=== PATIENT | male | born 1950 | race Caucasian/White ===

== ENCOUNTER → 2018-11-02 | Outpatient (CLI) | payer BC ==
--- NOTE | 2018-11-02 09:24 | CT ---
EXAMINATION TYPE: CT lumbar spine wo con DATE OF EXAM: 11/02/2018 COMPARISON: None HISTORY: Spinal Stenosis CT DLP: 587.[address] of the lumbar spine was performed. Bone and soft tissue window settings are submitted as well as coronal and sagittal reconstructions. L1-L2: Normal disc space height. No disc herniation protrusion or central stenosis. No facet joint arthropathy. No evidence for foraminal encroachment. L2-L3: Mild degenerative disc space narrowing. Circumferential disc bulge greatest posteriorly. Mild effacement ventral thecal sac. No evidence for stenosis or herniation. Mild facet joint arthropathy. L3-L4: Moderate degenerative disc space narrowing. Moderate circumferential disc bulge greatest poste riorly. There is a bilateral lateral recess stenosis and mild central stenosis. Bilateral foraminal e ncroachment. L4-L5: Grade 1 anterolisthesis L4 and L5 of 5 mm. Left-sided hemilaminectomy change. No evidence for recurrent stenosis. There appears to be mild bilateral lateral recess stenosis and bilateral foramina l encroachment. Severe facet joint arthropathy noted. L5-S1: Moderate degenerative disc space narrowing. Mild circumferential disc bulge greatest posterior ly. Left sided hemilaminectomy change. No evidence recurrence stenosis. Mild right-sided foraminal en croachment. No paraspinal masses are identified. Lumbar segments are free if fracture. IMPRESSION: 1. Multilevel degenerative disc disease. 2. Central stenosis at L3-4 as discussed above. 3. Grade 1 anterolisthesis L4 and L5.
== END | disposition home or self-care (01) ==
LOC: RADCTMAIN 07:37
PROVIDERS: ATTEND Neurological Surgery
DX: M48.062 Spinal stenosis, lumbar region with neurogenic claudication (principal); M43.16 Spondylolisthesis, lumbar region; M51.36 Other intervertebral disc degeneration, lumbar region
CPT/HCPCS: 72131

== ENCOUNTER → 2019-06-15 | Outpatient (CLI) | payer BC ==
--- NOTE | 2019-06-15 17:57 | EST ---
EXERCISE STRESS AGE: 69 SEX: Male HT: 72. WEIGHT: 192 PROTOCOL: Ryan STAGE: 4 DURATION OF EXERCISE: 9:15 HEART RATE REST: 94 BLOOD PRESSURE REST: 133/93 MAXIMUM HEART RATE ACHIEVED: 152 MAXIMUM BLOOD PRESSURE: 200/92 85% MPHR: 128 100% MPHR: 151 METS: 10.7 INDICATIONS: Hypertension. CLINICAL INFORMATION: Patient referred for a stress test. Baseline heart rate 94 beats per minute. Baseline blood pressure 133/93 mmHg. Baseline 12-lead ECG shows normal sinus rhythm with normal cardiac intervals. Patient exercised on a Ryan protocol for 9 minutes 15 seconds, achieving a peak heart rate of 152 beats per minute. Mildly hypertensive response to exercise, 200/92 mmHg. Patient was short of breath at peak exercise. There was no ECG evidence for ischemia. No arrhythmias noted. IMPRESSION: 1. Excellent exercise capacity. 2. Hypertensive response to exercise. 3. Shortness of breath on exertion. 4. No ECG abnormalities noted. MMODL / IJN: [id number] /
== END | disposition home or self-care (01) ==
LOC: RADNMMAIN 10:55
DX: I10 Essential (primary) hypertension (principal)
CPT/HCPCS: 93017

== ENCOUNTER → 2020-03-28 | Outpatient (CLI) | payer MEDICARE ==
--- NOTE | 2020-03-28 22:52 | XR ---
EXAMINATION TYPE: XR chest 2V DATE OF EXAM: 03/28/2020 COMPARISON: NONE HISTORY: Difficulty breathing TECHNIQUE: 2 views FINDINGS: Heart and mediastinum are normal. Lungs are clear. Diaphragm is normal. Bony thorax appears normal. IMPRESSION: Normal chest.
== END | disposition home or self-care (01) ==
LOC: LABWHC1 16:24
PROVIDERS: ATTEND Neuromusculoskeletal Medicine & OMM
DX: R06.02 Shortness of breath (principal)
CPT/HCPCS: 71046

== ENCOUNTER → 2021-02-04 | Outpatient (CLI) | payer MEDICARE ==
--- NOTE | 2021-02-04 12:01 | FL ---
EXAMINATION TYPE: FL barium swallow DATE OF EXAM: 02/04/2021 CLINICAL INDICATION: 70 year-old male with R13.10, dysphagia, complains of difficulty completing a sw allow for the last 8 months. COMPARISON: None Total Fluoroscopy Time: 2 minutes 2 seconds 61 images obtained. FINDINGS: The swallowing mechanism is normal. There is moderate hypertrophy of the cricopharyngeus. A tiny left laterally projecting diverticulum is noted in the cervical esophagus which fills on swallowing but s hows intermediate, spontaneous emptying. Otherwise, the hypopharyngeal anatomy is preserved. The thoracic portion has a normal course and caliber and normal motility. The mucosa is normal and no persistent filling defect is encountered. A small hiatal hernia. Valsalva and positional maneuvers resulted in back filling of the small hiatal hernia but no letty gastroesophageal reflux could be elicited. IMPRESSION: 1. Moderate CP hypertrophy/spasm. This may be accounting for the patient's symptoms. 2. Small hiatal hernia. Valsalva results in backfilling into the hiatal hernia. However, no letty gas troesophageal reflux could be elicited on the present exam. 3. Incidental tiny diverticulum of the cervical esophagus projecting left laterally shows immediate, spontaneous emptying.
== END | disposition home or self-care (01) ==
LOC: RADUSWWP 10:00
PROVIDERS: ATTEND Otolaryngology
DX: K44.9 Diaphragmatic hernia without obstruction or gangrene (principal); J39.2 Other diseases of pharynx
CPT/HCPCS: 74220

== ENCOUNTER 2022-02-23 21:02 | Emergency (ER) | payer MEDICARE ==
[2022-02-23 21:49] VITALS: BP 145/82; PULSE 100; RESP 20; TEMP 98
--- NOTE | 2022-02-23 22:12 | XR ---
EXAMINATION TYPE: XR shoulder complete RT DATE OF EXAM: 02/23/2022 COMPARISON: NONE HISTORY: Shoulder TECHNIQUE: 3 views FINDINGS: There is no evidence of fracture or dislocation. Glenohumeral joint is intact. No pathologi c calcification. IMPRESSION: Negative right shoulder exam.
--- NOTE | 2022-02-23 22:58 | ED ---
Upper Extremity HPI - General Chief Complaint: Extremity Injury, Upper Stated Complaint: Fall,Shoulder injury Time Seen by Provider: 02/23/22 22:49 Source: patient, RN notes reviewed, old records reviewed Mode of arrival: ambulatory Limitations: no limitations - History of Present Illness Initial Comments: This is a 71-year-old male status post fall fall her right side. Right shoulder. Patient landed on his right shoulder having severe pain decreased range of motion pain with active range of motion pain with passive range of motion. Patient states the pain is just increasing his range of motion is diminishing since initial injury is also feeling some pain in his shoulder and neck. Did not his head no loss of consciousness no blood thinners MD Complaint: Injury to:: right, shoulder -: hour(s) Other Extremity Injury: Fingers: Right, Hand: Right, Wrist: Right, Elbow: Right, Arm: Right, Shoulder: Right, Forearm: Right Other Injuries: none Handedness: right Place: home Severity scale (1-10): 8 Improves With: none Worsens With: none Context: fall Associated Symptoms: denies other symptoms Treatments Prior to Arrival: other (0) - Related Data Allergies Allergy/AdvReac Type Severity Reaction Status Date / Time No Known Allergies Allergy Verified 02/23/22 21:47 Review of Systems ROS Statement: Those systems with pertinent positive or pertinent negative responses have been documented in the HPI. ROS Other: All systems not noted in ROS Statement are negative. Past Medical History Past Medical History: Atrial Fibrillation, Hypertension Past Surgical History: Orthopedic Surgery Additional Past Surgical History / Comment(s): rotator cuff urgery TURP. Past Psychological History: No Psychological Hx Reported Smoking Status: Never smoker Past Alcohol Use History: None Reported Past Drug Use History: None Reported General Exam Limitations: no limitations General appearance: alert, in no apparent distress Head exam: Present: atraumatic, normocephalic, normal inspection Eye exam: Present: normal appearance, PERRL, EOMI. Absent: scleral icterus, conjunctival injection, periorbital swelling ENT exam: Present: normal exam, mucous membranes moist Neck exam: Present: normal inspection. Absent: tenderness, meningismus, lymphadenopathy Respiratory exam: Present: normal lung sounds bilaterally. Absent: respiratory distress, wheezes, rales, rhonchi, stridor Cardiovascular Exam: Present: regular rate, normal rhythm, normal heart sounds. Absent: systolic murmur, diastolic murmur, rubs, gallop, clicks GI/Abdominal exam: Present: soft, normal bowel sounds. Absent: distended, tenderness, guarding, rebound, rigid Extremities exam: Present: normal inspection, tenderness, normal capillary refill, other (Tenderness with active and passive range of motion). Absent: full ROM, pedal edema, joint swelling, calf tenderness Back exam: Present: normal inspection Neurological exam: Present: alert, oriented X3, CN II-XII intact Psychiatric exam: Present: normal affect, normal mood Skin exam: Present: warm, dry, intact, normal color. Absent: rash Course Vital Signs 02/23/22 21:43 Temperature 98 F Pulse Rate 100 Respiratory 20 Rate Blood Pressure 145/82 O2 Sat by Pulse 96 Oximetry - Reevaluation(s) Reevaluation #1: 02/23/22 23:22 Medical records reviewed Reevaluation #2: 02/23/22 23:22 Patient informed of results and questions are answered Reevaluation #3: 02/23/22 23:22 Patient's pain is improved Medical Decision Making - Medical Decision Making 71 male to the emergency department for evaluation patient presents today for evaluation of shoulder pain left shoulder pain after fall. Decreased range of motion secondary to pain x-rays negative for acute disease a patient can be discharged home, given exercises anti-inflammatories and pain control encouraged to continue range of motion exercises with right shoulder - Radiology Data Radiology results: report reviewed (X-ray shoulder right negative for acute disease), image reviewed Disposition Clinical Impression: Strain of shoulder, Fall, Contusion of left shoulder Disposition: HOME SELF-CARE Condition: Good Instructions (If sedation given, give patient instructions): Shoulder Sprain (ED) Is patient prescribed a controlled substance at d/c from ED?: No Referrals: Aki Sosa DO [Primary Care Provider] - 1-2 days Time of Disposition: 23:30
[2022-02-23] MEDS ORDERED: ACET/COD 300 MG/30 MG STARTER PACK 6 TAB BTL PO STA (23:19)
[2022-02-23] MEDS ORDERED: IBUPROFEN 600 MG STARTER PACK 4 TAB BTL PO STA (23:19)
== END 2022-02-23 23:33 | disposition home or self-care (01) ==
LOC: EC 21:02
DX: S46.912A Strain of unspecified muscle, fascia and tendon at shoulder and upper arm level, left arm, initial encounter (principal); S40.012A Contusion of left shoulder, initial encounter; I48.91 Unspecified atrial fibrillation; I10 Essential (primary) hypertension; W19.XXXA Unspecified fall, initial encounter
CPT/HCPCS: 99284

== ENCOUNTER 2023-02-01 15:33 | Emergency (ER) | payer MEDICARE ==
--- NOTE | 2023-02-01 16:00 | ED ---
Fall HPI - General Chief Complaint: Fall Stated Complaint: fall- on thinners Time Seen by Provider: 02/01/23 15:47 Source: patient, RN notes reviewed, old records reviewed Mode of arrival: wheelchair Limitations: no limitations - History of Present Illness Initial Comments: This is a 72-year-old male to the emergency department for evaluation. Patient presents after fall ladder. Patient is in significant pain or discomfort unable to ambulate. On blood thinners for A. fib. Patient fall landing on his left hip left shoulder left arm left elbow but main complaints of left hip pain as well as concern for left knee pain. Patient was on a ladder when the ladder collapsed and he fell to the ground he believes is about 6 feet in the air. No loss of Consciousness and did not his head MD Complaint: fall -: hour(s) Fall From: from height (distance) (6 feet) When Fall Occurred: 1 hour BOND [employer]NER Fall Witnessed: yes, by family Loss of Consciousness: none Prolonged Down Time?: no Symptoms Prior to Fall: none Location: pelvis Location - Extremities: Left: Shoulder, Arm, Elbow, Thigh Severity scale (1-10): 10 Quality: sharp Context: tripped/slipped Associated Symptoms: denies - Related Data Home Medications Medication Instructions Recorded Confirmed Apixaban [Eliquis] 5 mg PO BID 02/01/23 02/01/23 Atorvastatin [Lipitor] 10 mg PO DAILY 02/01/23 02/01/23 Cyclobenzaprine [Flexeril] 10 mg PO HS 02/01/23 02/01/23 HYDROcodone/APAP 7.5-325MG [[place] 1 tab PO QID PRN 02/01/23 02/01/23 7.5-325] Ibuprofen [Motrin] 800 mg PO Q8H PRN 02/01/23 02/01/23 Montelukast [Singulair] 10 mg PO DAILY 02/01/23 02/01/23 Omeprazole 20 mg PO BID 02/01/23 02/01/23 Testosterone Cypionate 120 mg IM SA 02/01/23 02/01/23 [Depo-Testosterone] Zolpidem Tartrate [Ambien Cr] 12.5 mg PO HS 02/01/23 02/01/23 amLODIPine [Norvasc] 5 mg PO DAILY 02/01/23 02/01/23 dilTIAZem HCL [dilTIAZem HCL 24Hr 360 mg PO DAILY 02/01/23 02/01/23 ER (LA)] Allergies Allergy/AdvReac Type Severity Reaction Status Date / Time No Known Allergies Allergy Verified 02/01/23 16:42 Review of Systems ROS Statement: Those systems with pertinent positive or pertinent negative responses have been documented in the HPI. ROS Other: All systems not noted in ROS Statement are negative. Past Medical History Past Medical History: Atrial Fibrillation, Hypertension History of Any Multi-Drug Resistant Organisms: None Reported Past Surgical History: Orthopedic Surgery Additional Past Surgical History / Comment(s): rotator cuff urgery TURP. Past Psychological History: No Psychological Hx Reported Smoking Status: Never smoker Past Alcohol Use History: Occasional Past Drug Use History: None Reported General Exam General appearance: alert, in no apparent distress Head exam: Present: atraumatic, normocephalic, normal inspection Eye exam: Present: normal appearance, PERRL, EOMI. Absent: scleral icterus, conjunctival injection, periorbital swelling ENT exam: Present: normal exam, mucous membranes moist Neck exam: Present: normal inspection. Absent: tenderness, meningismus, lymphadenopathy Respiratory exam: Present: normal lung sounds bilaterally. Absent: respiratory distress, wheezes, rales, rhonchi, stridor Cardiovascular Exam: Present: regular rate, normal rhythm, normal heart sounds. Absent: systolic murmur, diastolic murmur, rubs, gallop, clicks GI/Abdominal exam: Present: soft, normal bowel sounds. Absent: distended, tenderness, guarding, rebound, rigid Extremities exam: Present: normal inspection, full ROM, normal capillary refill. Absent: tenderness, pedal edema, joint swelling, calf tenderness Back exam: Present: normal inspection Neurological exam: Present: alert, oriented X3, CN II-XII intact Psychiatric exam: Present: normal affect, normal mood Skin exam: Present: warm, dry, intact, normal color. Absent: rash Course Vital Signs 02/01/23 02/01/23 15:35 19:55 Temperature 98 F 98.4 F Pulse Rate 74 72 Respiratory 18 16 Rate Blood Pressure 139/79 128/86 O2 Sat by Pulse 97 98 Oximetry - Reevaluation(s) Reevaluation #1: 02/01/23 19:54 Medical record is reviewed Reevaluation #2: 02/01/23 19:54 Patient complains of pain throughout ER stay Reevaluation #3: 02/01/23 19:54 Patient informed results questions answered Reevaluation #4: 02/01/23 19:51 Was pt. sent in by a medical professional or institution (YOLANDA Myers, SALES SOLUTIONS REPRESENTATIVE, urgent care, hospital, or senior care...) When possible be specific @ -no Did you speak to anyone other than the patient for history (EMS, parent, family, police, friend...)? What history was obtained from this source @ -no Did you review nursing and triage notes (agree or disagree)? Why? @ -agree Are old charts reviewed (outside hosp., previous admission, EMS record, old EKG, old radiological studies, urgent care reports/EKG's, senior care records)? Report findings @ -yes Differential Diagnosis (chest pain, altered mental status, abdominal pain women, abdominal pain men, vaginal bleeding, weakness, fever, dyspnea, syncope, headache, dizziness, GI bleed, back pain, seizure, CVA, palpatations, mental health, musculoskeletal)? @ -prior EKG interpreted by me (3pts min.). @ -yes X-rays interpreted by me (1pt min.). @ -yes CT interpreted by me (1pt min.). @ -yes U/S interpreted by me (1pt. min.). @ -no What testing was considered but not performed or refused? (CT, X-rays, U/S, labs)? Why? @ -none What meds were considered but not given or refused? Why? @ -none Did you discuss the management of the patient with other professionals (professionals i.e. YOLANDA Myers, SALES SOLUTIONS REPRESENTATIVE, lab, RT, psych nurse, social service manager, gun stocker, teacher, recruitment officer, watch caser)? Give summary @ -no Was smoking cessation discussed for >3mins.? @ -no Was critical care preformed (if so, how long)? @ -no Were there social determinants of health that impacted care today? How? (Homelessness, low income, unemployed, alcoholism, drug addiction, transportation, low edu. Level, literacy, decrease access to med. care, custodial, rehab)? @ -none Was there de-escalation of care discussed even if they declined (Discuss DNR or withdrawal of care, Hospice)? DNR status @ -no What co-morbidities impacted this encounter? (DM, HTN, Smoking, COPD, CAD, Cancer, CVA, ARF, Chemo, Hep., AIDS, mental health diagnosis, sleep apnea, morbid obesity)? @ -none Was patient admitted / discharged? Hospital course, mention meds given and route, prescriptions, significant lab abnormalities, going to OR and other pertinent info. @ - 72 male to the emergency department for evaluation of fall from height on b lood thinners. Patient has difficulty left knee pain left hip pain found at tibial plateau fracture left knee patient will follow-up with orthopedics as an outpatient with knee immobilizer and nonweightbearing, patient will use crutches Discharged Undiagnosed new problem with uncertain prognosis? @ -no Drug Therapy requiring intensive monitoring for toxicity (Heparin, Nitro, Insulin, Cardizem)? @ -no Were any procedures done? @ -no Diagnosis/symptom? @ -Fall with left tibial plateau fracture Acute, or Chronic, or Acute on Chronic? @ -Acute Uncomplicated (without systemic symptoms) or Complicated (systemic symptoms)? @ -Complicated Side effects of treatment? @ -no Exacerbation, Progression, or Severe Exacerbation? @ -exacerbation Poses a threat to life or bodily function? How? (Chest pain, [place], [place], pneumonia, PE, COPD, DKA, ARF, appy, cholecystitis, CVA, Diverticulitis, Homicidal, Suicidal, threat to staff... and all critical care pts) @ -no Medical Decision Making - Medical Decision Making 72 male DF for evaluation of fall from height on blood thinners. Patient has difficulty left knee pain left hip pain found at tibial plateau fracture left knee patient will follow-up with orthopedics as an outpatient with knee im mobilizer and nonweightbearing, patient will use crutches - Lab Data Result diagrams: 02/01/23 16:08 02/01/23 16:08 Lab Results 02/01/23 02/01/23 02/01/23 Range/Units 16:08 16:08 16:08 WBC 5.5 (3.8-10.6) k/uL RBC 5.46 (4.30-5.90) m/uL Hgb 16.0 (13.0-17.5) gm/dL Hct 49.9 (39.0-53.0) % MCV 91.3 (80.0-100.0) fL MCH 29.2 (25.0-35.0) pg MCHC 32.0 (31.0-37.0) g/dL RDW 13.6 (11.5-15.5) % Plt Count 281 (150-450) k/uL MPV 7.1 Neutrophils % 59 % Lymphocytes % 29 % Monocytes % 7 % Eosinophils % 2 % Basophils % 0 % Neutrophils # 3.3 (1.3-7.7) k/uL Lymphocytes # 1.6 (1.0-4.8) k/uL Monocytes # 0.4 (0-1.0) k/uL Eosinophils # 0.1 (0-0.7) k/uL Basophils # 0.0 (0-0.2) k/uL Hypochromasia Slight PT 10.8 (10.0-12.5) sec INR 1.0 (<1.2) APTT 26.0 (22.0-30.0) sec Sodium 136 L (137-145) mmol/L Potassium 4.8 (3.5-5.1) mmol/L Chloride 103 (98-107) mmol/L Carbon Dioxide 23 (22-30) mmol/L Anion Gap 10 mmol/L BUN 19 (9-20) mg/dL Creatinine 0.87 (0.66-1.25) mg/dL Est GFR (CKD-EPI)AfAm >90 (>60 ml/min/1.73 sqM) Est GFR (CKD-EPI)NonAf 86 (>60 ml/min/1.73 sqM) Glucose 96 (74-99) mg/dL Calcium 9.9 (8.4-10.2) mg/dL Phosphorus 2.9 (2.5-4.5) mg/dL Magnesium 2.1 (1.6-2.3) mg/dL Total Bilirubin 0.6 (0.2-1.3) mg/dL AST 42 (17-59) U/L ALT 26 (4-49) U/L Alkaline Phosphatase 77 (38-126) U/L Total Protein 6.8 (6.3-8.2) g/dL Albumin 4.5 (3.5-5.0) g/dL - EKG Data -: EKG Interpreted by Me (EKG is sinus 79 IN 182 QRS 97 QTC 380) - Radiology Data Radiology results: report reviewed (Chest x-ray pelvis x-ray shoulder x-ray knee x-ray are negative for significant somatic injury CT left hip and left knee to show tibial plateau fracture left knee), image reviewed Disposition Clinical Impression: Fall, Fracture of left tibial plateau Disposition: HOME SELF-CARE Condition: Good Instructions (If sedation given, give patient instructions): Leg Fracture (ED) Is patient prescribed a controlled substance at d/c from ED?: No Referrals: Ezio Huff MD [Medical Doctor] - 1-2 days Time of Disposition: 19:55
[2023-02-01] MEDS ORDERED: SODIUM CHLORIDE 0.9% 1,000 ML IV ONE (16:03)
[2023-02-01] MEDS ORDERED: MORPHINE SULFATE 4 MG/ML SYRINGE IV STA (16:03)
--- NOTE | 2023-02-01 16:18 | XR ---
EXAMINATION TYPE: XR chest 1V DATE OF EXAM: 02/01/2023 COMPARISON: 03/28/2020 INDICATION: Fall, pain TECHNIQUE: Single frontal view of the chest is obtained. FINDINGS: The heart size is normal. The pulmonary vasculature is normal. The lungs are clear. No pneumothorax is evident. No displaced rib fractures are identified. Mediastinum appears unremarkab le IMPRESSION: 1. No acute pulmonary process.
--- NOTE | 2023-02-01 16:19 | XR ---
EXAMINATION TYPE: XR Hip LT and AP Pelvis DATE OF EXAM: 02/01/2023 COMPARISON: None HISTORY: Fall, pain TECHNIQUE: AP pelvis and two-view left hip FINDINGS: Femoral heads articulate with the acetabulum. No acute fractures or dislocations are eviden t. Pubic symphysis and sacroiliac joints are normal. Left femoral head articulates with the acetabulum. Joint space is preserved. No acute left hip fractu re is evident. IMPRESSION: 1. No acute osseous abnormality left hip
[2023-02-01 16:22] LABS: Basophils % (A) 0 %; Eosinophils # (A) 0.1 k/uL (0-0.7); Eosinophils % (A) 2 %; HCT 49.9 % (39.0-53.0); Hypochromasia Slight; Lymphocytes # (A) 1.6 k/uL (1.0-4.8); Lymphocytes % (A) 29 %; MCH 29.2 pg (25.0-35.0); MCV 91.3 fL (80.0-100.0); Mean Platelet Volume 7.1; Monocytes # (A) 0.4 k/uL (0-1.0); Monocytes % (A) 7 %; Neutrophils # (A) 3.3 k/uL (1.3-7.7); Neutrophils % (A) 59 %; Platelet Count 281 k/uL (150-450); RBC 5.46 m/uL (4.30-5.90); RDW 13.6 % (11.5-15.5); WBC 5.5 k/uL (3.8-10.6)
[2023-02-01 16:40] LABS: ALT 26 U/L (4-49); AST 42 U/L (17-59); African American GFR (CKD) >90 (>60 ml/min/1.73 sqM); Albumin 4.5 g/dL (3.5-5.0); Alkaline Phosphatase 77 U/L (38-126); Anion Gap 10 mmol/L; Blood Urea Nitrogen 19 mg/dL (9-20); Calcium 9.9 mg/dL (8.4-10.2); Carbon Dioxide 23 mmol/L (22-30); Chloride 103 mmol/L (98-107); Glucose 96 mg/dL (74-99); Magnesium 2.1 mg/dL (1.6-2.3); Non-African American GFR(CKD) 86 (>60 ml/min/1.73 sqM); Phosphorus 2.9 mg/dL (2.5-4.5); Potassium 4.8 mmol/L (3.5-5.1); Sodium 136 mmol/L (137-145); Total Bilirubin 0.6 mg/dL (0.2-1.3); Total Protein 6.8 g/dL (6.3-8.2)
[2023-02-01 16:53] LABS: Prothrombin Time 10.8 sec (10.0-12.5)
--- NOTE | 2023-02-01 17:01 | XR ---
EXAMINATION TYPE: XR knee complete LT DATE OF EXAM: 02/01/2023 COMPARISON: None HISTORY: 72-year-old male pain after fall from ladder TECHNIQUE: 3 views FINDINGS: Mild anterior soft tissue swelling. Extensor mechanism is intact. Maybe a trace knee joint effusion. Trace joint effusion. Possible subtle step off along the anterior lip of the lateral tibial plateau o n the AP view. No other acute fracture, subluxation, dislocation seen. IMPRESSION: Mild anterior soft tissue swelling and trace joint effusion. Subtle cortical irregularity along the a nterior lip of the lateral tibial plateau. If there is point tenderness, unable to exclude a subtle n ondisplaced tibial plateau fracture.
[2023-02-01] MEDS ORDERED: KETOROLAC 15 MG/ML 1 ML VIAL IVP STA (18:39)
[2023-02-01] MEDS ORDERED: HYDROmorphone 0.5 MG/0.5 ML SYRINGE IVP STA (18:39)
--- NOTE | 2023-02-01 18:43 | CT ---
EXAMINATION TYPE: CT hip LT wo con DATE OF EXAM: 02/01/2023 COMPARISON: Radiograph same date HISTORY: 72-year-old male left hip pain from fall TECHNIQUE: Contiguous axial scanning of the left hip without IV contrast. Coronal and sagittal recons tructions performed. Reconstructions generated on dedicated independent workstation. CT DLP: 498.9 mGycm Automated exposure control for dose reduction was used. FINDINGS: There appears to be mild subcutaneous soft tissue swelling along the lateral and posterolateral upper thigh. There is mild degenerative change of the left hip. No acute fracture, subluxation, dislocatio n is seen. Surgical material behind the deep left inguinal ring. Prostate gland enlarged at at least 5.6 cm wide. IMPRESSION: 1. MILD LEFT HIP OA. MILD SOFT TISSUE SWELLING LATERALLY PROBABLY RELATED TO THE PATIENT'S INJURY. NO ACUTE OSSEOUS ANTIBODY SEEN. 2. INCIDENTAL PROSTATOMEGALY. CORRELATE WITH PSA VALUES AND PATIENT'S SYMPTOMS.
--- NOTE | 2023-02-01 18:46 | CT ---
EXAMINATION TYPE: CT knee LT wo con DATE OF EXAM: 02/01/2023 COMPARISON: Radiograph same day HISTORY: 72-year-old male left knee pain following fall TECHNIQUE: Contiguous axial scanning of the left knee without IV contrast. Coronal and sagittal recon structions performed. 3-D reconstructions generated on a dedicated independent workstation. CT DLP: 129.5 mGycm Automated exposure control for dose reduction was used. FINDINGS: There is a fracture of the lateral tibial plateau oriented in the sagittal plane. Minimal less than 1 mm of articular surface depression peripherally involving the mid to posterior aspect. No lipohemarthrosis is seen. There is a small joint effusion. No additional acute fracture, subluxation, or dislocation seen. Extensor mechanism is intact. Mild anterior soft tissue swelling. IMPRESSION: NONDISPLACED LATERAL TIBIAL PLATEAU FRACTURE. THE FRACTURE LINE IS ORIENTED IN THE SAGITTAL PLANE AND THERE IS MINIMAL, LESS THAN 1 MM OF ARTICULAR SURFACE DEPRESSION.
--- NOTE | 2023-02-01 19:26 | XR ---
EXAMINATION TYPE: XR shoulder complete 3 views LT, XR elbow complete 3 views LT DATE OF EXAM: 02/01/2023 Comparison: None Clinical History: 72-year-old male with pain after fall Findings: Shoulder: Some soft tissue swelling overlying the shoulder. Mild degenerative change AC joint. Subacromial spac e is preserved. Some bony irregularity of the greater tuberosity. No acute fracture, subluxation, or dislocation. Left elbow: No joint effusion. No acute fracture, subluxation, dislocation. A peripheral line is present. Impression: 1. Left shoulder: Mild AC joint OA. Some bony changes suggesting chronic rotator cuff tendinopathy. M ild soft tissue swelling overlying the shoulder. No acute osseous abnormality seen. 2. Left elbow: No acute osseous abnormality seen.
[2023-02-01 20:34] VITALS: BP 128/86; PULSE 72; RESP 16; TEMP 98.4
== END 2023-02-01 19:55 | disposition home or self-care (01) ==
LOC: EC 15:33
DX: S82.142A Displaced bicondylar fracture of left tibia, initial encounter for closed fracture (principal); I48.91 Unspecified atrial fibrillation; I10 Essential (primary) hypertension; Z79.01 Long term (current) use of anticoagulants; Z79.899 Other long term (current) drug therapy; W11.XXXA Fall on and from ladder, initial encounter
CPT/HCPCS: 36415; 93005; 80053; 83735; 84100; 85025; 85610; 85730; 73030; 73502; 73080; 73562; 71045; 73700 ×2; 99285; 96374; 96375 ×2; 96361; L1830; J2270; J1885; J1170

== ENCOUNTER 2023-03-16 10:51 | Emergency (ER) | payer MEDICARE ==
--- NOTE | 2023-03-16 10:56 | ED ---
General Adult HPI - General Source: patient, RN notes reviewed Mode of arrival: ambulatory Limitations: no limitations <Rip Bean - Last Filed: 03/16/23 10:54> <Marito Erazo - Last Filed: 03/16/23 20:10> - General Stated complaint: gi bleed vomiting diarrhea Time Seen by Provider: 03/16/23 10:54 - History of Present Illness Initial comments: 73-year-old male presents emergency Department with chief complaint of nausea vomiting diarrhea. Patient states that started last night presents via EMS with brown emesis. Patient is on Xarelto. Patient went to 2 out of 10 abdominal pain. Denies any chest pain or shortness of breath. (Rip Bean) Dictation was produced using [employer] dictation software. please excuse any grammatical, word or spelling errors. Chief Complaint: 73-year-old male presents emergency department for coffee- ground emesis and melanotic stool History of Present Illness: Patient is 73-year-old male he has past medical history of A. fib and anticoagulation use presents emergency department for several hours of coffee-ground emesis and melanotic stool. Patient states that he also has lower abdominal pain. No fevers. Does feel lightheaded especially when he tries to stand up. Denies any history of GI bleed he has known history of GI polyps seen on endoscopy in the past. The ROS documented in this emergency department record has been reviewed and co nfirmed by me. Those systems with pertinent positive or negative responses have been documented in the HPI. All other systems are other negative and/or noncontributory. (Marito Erazo) - Related Data Home Medications Medication Instructions Recorded Confirmed Apixaban [Eliquis] 5 mg PO BID 02/01/23 03/16/23 Atorvastatin [Lipitor] 10 mg PO HS 02/01/23 03/16/23 Cyclobenzaprine [Flexeril] 10 mg PO HS 02/01/23 03/16/23 HYDROcodone/APAP 7.5-325MG [Alexander 1 tab PO QID 02/01/23 03/16/23 7.5-325] Ibuprofen [Motrin] 800 mg PO TID 02/01/23 03/16/23 Montelukast [Singulair] 10 mg PO HS 02/01/23 03/16/23 Omeprazole 20 mg PO AC-BID 02/01/23 03/16/23 Testosterone Cypionate 120 mg IM SA 02/01/23 03/16/23 [Depo-Testosterone] Zolpidem Tartrate [Ambien Cr] 12.5 mg PO HS 02/01/23 03/16/23 amLODIPine [Norvasc] 5 mg PO HS 02/01/23 03/16/23 dilTIAZem HCL [dilTIAZem HCL 24Hr 360 mg PO DAILY 02/01/23 03/16/23 ER ([place])] Famotidine [Pepcid] 40 mg PO HS 03/16/23 03/16/23 Allergies Allergy/AdvReac Type Severity Reaction Status Date / Time No Known Allergies Allergy Verified 03/16/23 17:07 Review of Systems ROS Other: All systems not noted in ROS Statement are negative. <Rip Bean - Last Filed: 03/16/23 10:54> ROS Other: All systems not noted in ROS Statement are negative. <Marito Erazo - Last Filed: 03/16/23 20:10> ROS Statement: Those systems with pertinent positive or pertinent negative responses have been documented in the HPI. Past Medical History Past Medical History: Atrial Fibrillation, Hypertension History of Any Multi-Drug Resistant Organisms: None Reported Past Surgical History: Orthopedic Surgery Additional Past Surgical History / Comment(s): rotator cuff urgery TURP. Past Psychological History: No Psychological Hx Reported Smoking Status: Never smoker Past Alcohol Use History: Occasional Past Drug Use History: None Reported <Rip Bean - Last Filed: 03/16/23 10:54> General Exam <Rip Bean - Last Filed: 03/16/23 10:54> <Marito Erazo - Last Filed: 03/16/23 20:10> - General Exam Comments Initial Comments: Visual Physical Exam Vital signs reviewed General: Well-appearing, nontoxic, no acute distress. Head: Normocephalic, atraumatic Eyes: PERRLA, EOMI ENT: Airway patent Chest: Nonlabored breathing Skin: No visual rash, normal skin tone Neuro: Alert and oriented 3 Musculoskeletal: No gross abnormalities (Rip Bean) PHYSICAL EXAM: General Impression: Alert and oriented x3, not in acute distress HEENT: Normocephalic atraumatic, extra-ocular movements intact, pupils equal and reactive to light bilaterally, mucous membranes moist. Cardiovascular: Heart regular rate and rhythm Chest: Able to complete full sentences, no retractions, no tachypnea Abdomen: abdomen soft, mild lower abdominal palpatory tenderness, non-distended, no organomegaly Musculoskeletal: Pulses present and equal in all extremities, no peripheral edema Motor: no focal deficits noted Neurological: CN II-XII grossly intact, no focal motor or sensory deficits noted Skin: Intact with no visualized rashes Psych: Normal affect and mood Rectal: No gross blood (Marito Erazo) Course Vital Signs 03/16/23 03/16/23 03/16/23 11:07 17:04 18:53 Temperature 98.2 F Pulse Rate 98 86 91 Respiratory 18 18 18 Rate Blood Pressure 127/79 119/76 114/81 O2 Sat by Pulse 95 92 L 96 Oximetry Medical Decision Making <Rip Bean - Last Filed: 03/16/23 10:54> - Lab Data Result diagrams: 03/16/23 11:11 03/16/23 11:11 <Marito Erazo - Last Filed: 03/16/23 20:10> - Medical Decision Making I completed the quick note portion of this chart signed Rip Bean PA-C (Rip Bean) Was pt. sent in by a medical professional or institution ([facility], [employer], urgent care, hospital, or penitentiary...) When possible be specific @ -No Did you speak to anyone other than the patient for history (EMS, parent, family, police, friend...)? What history was obtained from this source @ - at the bedside Did you review nursing and triage notes (agree or disagree)? Why? @ -I reviewed and agree with nursing and triage notes Were old charts reviewed (outside hosp., previous admission, EMS record, old EKG , old radiological studies, urgent care reports/EKG's, penitentiary records)? Report findings @ -No old charts were reviewed Differential Diagnosis (chest pain, altered mental status, abdominal pain women, abdominal pain men, vaginal bleeding, musculoskeletal, weakness, fever, dyspnea, syncope, headache, dizziness, GI bleed, back pain, seizure, CVA, palpatations, mental health)? @ -Differential Abdominal Pain Men: Appendicitis, cholecystitis, diverticulosis, ischemic bowel, pancreatitis, hepatitis, UTI, gastroenteritis, AAA, incarcerated hernia, bowel obstruction, constipation, inflammatory bowel, hepatitis, peptic ulcer disease, splenic infarction, perforated viscus, testicular torsion, this is not meant to be an all-inclusive list X-rays interpreted by me (1pt min.). @ -None done CT interpreted by me (1pt min.). @ -CT of the abdomen and pelvis shows hazy area of mesentery and wall thickening concerning for small bowel ischemia U/S interpreted by me (1pt. min.). @ -None done What testing was considered but not performed or refused? (CT, X-rays, U/S, labs)? Why? @ -None What meds were considered but not given or refused? Why? @ -None Did you discuss the management of the patient with other professionals (john atwood i.e. , PA, [employer]ER, lab, RT, psych nurse, social service coordinator, puff iron operator, teacher, loan servicing officer, casework manager)? Give summary @ -Discussed with Dr. Arzate who requested patient be transferred given patient's clinical presentation and CT findings. Case discussed with Dr. Bateman at [facility] who is willing to accept patient's care Was smoking cessation discussed for >3mins.? @ -No Was critical care preformed (if so, how long)? @ -No Were there social determinants of health that impacted care today? How? (Homelessness, low income, unemployed, alcoholism, drug addiction, transportation, low edu. Level, literacy, decrease access to med. care, prison, rehab)? @ -No Was there de-escalation of care discussed even if they declined (Discuss DNR or withdrawal of care, Hospice)? DNR status @ -No What co-morbidities impacted this encounter? (DM, HTN, Smoking, COPD, CAD, Cancer, CVA, ARF, Chemo, Hep., AIDS, mental health diagnosis, sleep apnea, morbid obesity)? @ -None Was patient admitted / discharged? Hospital course, mention meds given and route, prescriptions, significant lab abnormalities, going to OR and other pertinent info. @ -73-year-old male presents with abdominal pain and concerns of coffee-ground emesis and melanotic diarrhea. Vital signs stable. Patient will. The bedside he does have abdominal pain with palpation. Vital signs are stable. Laboratory evaluation shows leukocytosis 16.8. Restless within acceptable limits. So, blood is negative. Computed tomography scan reports suspicious for ischemic bowel. Case discussed with Dr. Abdul who requested transfer. Patient requests transfer and therefore. Vik Emanuel except. Patient given IV Zosyn. Undiagnosed new problem with uncertain prognosis? @ -No Drug Therapy requiring intensive monitoring for toxicity (Heparin, Nitro, Insulin, Cardizem)? @ -No Were any procedures done? @ -No Diagnosis/symptom? Acute, or Chronic, or Acute on Chronic? Uncomplicated (without systemic symptoms) or Complicated (systemic symptoms)? @ -Abdominal pain, concern for ischemic bowel Side effects of treatment? @ -No Exacerbation, Progression, or Severe Exacerbation? @ -No Poses a threat to life or bodily function? How? (Chest pain, USA, CT, pneumonia, PE, COPD, DKA, ARF, appy, cholecystitis, CVA, Diverticulitis, Homicidal, Suicidal, threat to staff... and all critical care pts) @ -yes (Marito Erazo) - Lab Data Lab Results 03/16/23 03/16/23 03/16/23 Range/Units 11:11 11:11 11:11 WBC 16.8 H (3.8-10.6) k/uL RBC 6.04 H (4.30-5.90) m/uL Hgb 16.8 (13.0-17.5) gm/dL Hct 53.7 H (39.0-53.0) % MCV 88.9 (80.0-100.0) fL MCH 27.9 (25.0-35.0) pg MCHC 31.4 (31.0-37.0) g/dL RDW 14.3 (11.5-15.5) % Plt Count 311 (150-450) k/uL MPV 6.9 Neutrophils % 92 % Lymphocytes % 3 % Monocytes % 3 % Eosinophils % 1 % Basophils % 0 % Neutrophils # 15.5 H (1.3-7.7) k/uL Lymphocytes # 0.5 L (1.0-4.8) k/uL Monocytes # 0.6 (0-1.0) k/uL Eosinophils # 0.2 (0-0.7) k/uL Basophils # 0.0 (0-0.2) k/uL Hypochromasia Slight PT (10.0-12.5) sec INR (<1.2) APTT (22.0-30.0) sec Sodium 141 (137-145) mmol/L Potassium 4.1 (3.5-5.1) mmol/L Chloride 101 (98-107) mmol/L Carbon Dioxide 31 H (22-30) mmol/L Anion Gap 9 mmol/L BUN 17 (9-20) mg/dL Creatinine 0.94 (0.66-1.25) mg/dL Est GFR (CKD-EPI)AfAm >90 (>60 ml/min/1.73 sqM) Est GFR (CKD-EPI)NonAf 81 (>60 ml/min/1.73 sqM) Glucose 141 H (74-99) mg/dL Plasma Lactic Acid Jose Roberto 1.3 (0.7-2.0) mmol/L Calcium 10.3 H (8.4-10.2) mg/dL Total Bilirubin 0.6 (0.2-1.3) mg/dL AST 27 (17-59) U/L ALT 21 (4-49) U/L Alkaline Phosphatase 70 (38-126) U/L Total Protein 6.8 (6.3-8.2) g/dL Albumin 4.4 (3.5-5.0) g/dL Amylase 52 (30-110) U/L Lipase 44 (23-300) U/L Stool Occult Blood (Negative) Blood Type Blood Type Confirm Blood Type Recheck Bld Type Recheck Status Antibody Screen Spec Expiration Date 03/16/23 03/16/23 03/16/23 Range/Units 11:11 11:11 16:47 WBC (3.8-10.6) k/uL RBC (4.30-5.90) m/uL Hgb (13.0-17.5) gm/dL Hct (39.0-53.0) % MCV (80.0-100.0) fL MCH (25.0-35.0) pg MCHC (31.0-37.0) g/dL RDW (11.5-15.5) % Plt Count (150-450) k/uL MPV Neutrophils % % Lymphocytes % % Monocytes % % Eosinophils % % Basophils % % Neutrophils # (1.3-7.7) k/uL Lymphocytes # (1.0-4.8) k/uL Monocytes # (0-1.0) k/uL Eosinophils # (0-0.7) k/uL Basophils # (0-0.2) k/uL Hypochromasia PT 11.4 (10.0-12.5) sec INR 1.0 (<1.2) APTT 23.6 (22.0-30.0) sec Sodium (137-145) mmol/L Potassium (3.5-5.1) mmol/L Chloride (98-107) mmol/L Carbon Dioxide (22-30) mmol/L Anion Gap mmol/L BUN (9-20) mg/dL Creatinine (0.66-1.25) mg/dL Est GFR (CKD-EPI)AfAm (>60 ml/min/1.73 sqM) Est GFR (CKD-EPI)NonAf (>60 ml/min/1.73 sqM) Glucose (74-99) mg/dL Plasma Lactic Acid Jose Roberto (0.7-2.0) mmol/L Calcium (8.4-10.2) mg/dL Total Bilirubin (0.2-1.3) mg/dL AST (17-59) U/L ALT (4-49) U/L Alkaline Phosphatase (38-126) U/L Total Protein (6.3-8.2) g/dL Albumin (3.5-5.0) g/dL Amylase (30-110) U/L Lipase (23-300) U/L Stool Occult Blood (Negative) Blood Type A Positive Blood Type Confirm A Positive Blood Type Recheck No Previous Record Bld Type Recheck Status CABO Indicated Antibody Screen NEGATIVE Spec Expiration Date 03/19/2023 - 231003/16/23 Range/Units 16:47 WBC (3.8-10.6) k/uL RBC (4.30-5.90) m/uL Hgb (13.0-17.5) gm/dL Hct (39.0-53.0) % MCV (80.0-100.0) fL MCH (25.0-35.0) pg MCHC (31.0-37.0) g/dL RDW (11.5-15.5) % Plt Count (150-450) k/uL MPV Neutrophils % % Lymphocytes % % Monocytes % % Eosinophils % % Basophils % % Neutrophils # (1.3-7.7) k/uL Lymphocytes # (1.0-4.8) k/uL Monocytes # (0-1.0) k/uL Eosinophils # (0-0.7) k/uL Basophils # (0-0.2) k/uL Hypochromasia PT (10.0-12.5) sec INR (<1.2) APTT (22.0-30.0) sec Sodium (137-145) mmol/L Potassium (3.5-5.1) mmol/L Chloride (98-107) mmol/L Carbon Dioxide (22-30) mmol/L Anion Gap mmol/L BUN (9-20) mg/dL Creatinine (0.66-1.25) mg/dL Est GFR (CKD-EPI)AfAm (>60 ml/min/1.73 sqM) Est GFR (CKD-EPI)NonAf (>60 ml/min/1.73 sqM) Glucose (74-99) mg/dL Plasma Lactic Acid Jose Roberto (0.7-2.0) mmol/L Calcium (8.4-10.2) mg/dL Total Bilirubin (0.2-1.3) mg/dL AST (17-59) U/L ALT (4-49) U/L Alkaline Phosphatase (38-126) U/L Total Protein (6.3-8.2) g/dL Albumin (3.5-5.0) g/dL Amylase (30-110) U/L Lipase (23-300) U/L Stool Occult Blood Negative (Negative) Blood Type Blood Type Confirm Blood Type Recheck Bld Type Recheck Status Antibody Screen Spec Expiration Date Disposition <Rip Bean - Last Filed: 03/16/23 10:54> Time of Disposition: 20:10 - Out of Hospital Transfer - Req. Specs Out of Hospital Transfer - Requested Specifics: Other Emergency Center ([facility]) <Marito Erazo - Last Filed: 03/16/23 20:10> Clinical Impression: Ischemic bowel disease Disposition: OTHER INSTITUTION NOT DEFINED Condition: Serious Referrals: Arnulfo Sosa DO [REFERRING] - 1-2 days
[2023-03-16 11:33] VITALS: RESP 18; TEMP 98.2
[2023-03-16 11:59] LABS: Basophils % (A) 0 %; Eosinophils # (A) 0.2 k/uL (0-0.7); Eosinophils % (A) 1 %; HCT 53.7 % (39.0-53.0); HGB 16.8 gm/dL (13.0-17.5); Hypochromasia Slight; Lymphocytes # (A) 0.5 k/uL (1.0-4.8); Lymphocytes % (A) 3 %; MCH 27.9 pg (25.0-35.0); MCHC 31.4 g/dL (31.0-37.0); MCV 88.9 fL (80.0-100.0); Mean Platelet Volume 6.9; Monocytes # (A) 0.6 k/uL (0-1.0); Monocytes % (A) 3 %; Neutrophils # (A) 15.5 k/uL (1.3-7.7); Neutrophils % (A) 92 %; Platelet Count 311 k/uL (150-450); RBC 6.04 m/uL (4.30-5.90); RDW 14.3 % (11.5-15.5); WBC 16.8 k/uL (3.8-10.6)
[2023-03-16 12:14] LABS: ALT 21 U/L (4-49); AST 27 U/L (17-59); African American GFR (CKD) >90 (>60 ml/min/1.73 sqM); Albumin 4.4 g/dL (3.5-5.0); Alkaline Phosphatase 70 U/L (38-126); Amylase 52 U/L (30-110); Anion Gap 9 mmol/L; Blood Urea Nitrogen 17 mg/dL (9-20); Calcium 10.3 mg/dL (8.4-10.2); Carbon Dioxide 31 mmol/L (22-30); Chloride 101 mmol/L (98-107); Glucose 141 mg/dL (74-99); Lipase 44 U/L (23-300); Non-African American GFR(CKD) 81 (>60 ml/min/1.73 sqM); Potassium 4.1 mmol/L (3.5-5.1); Sodium 141 mmol/L (137-145); Total Bilirubin 0.6 mg/dL (0.2-1.3); Total Protein 6.8 g/dL (6.3-8.2)
[2023-03-16 12:16] LABS: Partial Thromboplastin Time 23.6 sec (22.0-30.0); Prothrombin Time 11.4 sec (10.0-12.5)
[2023-03-16] MEDS ORDERED: PANTOPRAZOLE 40 MG/10 ML VIAL IVP STA (15:28)
--- NOTE | 2023-03-16 18:33 | CT ---
EXAMINATION TYPE: CT abdomen pelvis w con DATE OF EXAM: 03/16/2023 COMPARISON: None HISTORY: black vomit and diarrhea CT DLP: 883.3 mGycm CONTRAST: CT scan of the abdomen and pelvis is performed without Oral Contrast and with IV Contrast, patient in jected with 100ml mL of Isovue 300. FINDINGS: LUNG BASES-: No visible nodule. No infiltrate. LIVER/GB: No calcified gallstones. No space occupying hepatic lesion. Biliary tree is of normal ca liber. PANCREAS: No inflammation. No distinct mass. SPLEEN: No splenic enlargement. No lesion seen. ADRENALS: No nodule. No thickening. KIDNEYS/BLADDER: No hydronephrosis. 4 mm nonobstructing calculus kidney. Simple cyst upper pole left kidney. No distinct renal mass. Urinary bladder grossly unremarkable. BOWEL: There are dilated loops of bowel within the upper abdomen measuring up to 3.5 cm with wall thi ckening and hazy mesentery. Small bowel ischemia is not excluded and strict clinical correlation with lactic acid is recommended as well as with clinical findings. Inflammatory or infectious enteritis i s considered less likely. There is no evidence for perforation or free air. Large bowel is of normal caliber as is the distal small bowel. Normal appendix visualized. GENITAL ORGANS: Prostate gland enlargement noted. LYMPH NODES: No greater than 1cm abdominal or pelvic lymph nodes are appreciated. AORTA: No significant abnormality. OSSEOUS STRUCTURES: No significant abnormality is seen. OTHER: No significant additional abnormality is seen. IMPRESSION: 1. There are dilated loops of small bowel within the upper abdomen measuring up to 3.5 cm with wall t hickening and hazy mesentery. Small bowel ischemia is not excluded and strict clinical correlation wi th lactic acid is recommended as well as with clinical findings. Inflammatory or infectious enteritis is considered less likely.
[2023-03-16] MEDS ORDERED: MORPHINE SULFATE 4 MG/ML SYRINGE IVP PRN (18:41)
[2023-03-16] MEDS ORDERED: PIPERACILLIN-TAZOBACTAM 3.375 GM in SODIUM CHLORIDE 0.9% 100 ML IVPB STA (19:12)
[2023-03-16 21:05] VITALS: BP 127/81; PULSE 92
== END 2023-03-16 20:43 | disposition other institution (70) ==
LOC: EC 10:51
DX: K55.9 Vascular disorder of intestine, unspecified (principal); I48.91 Unspecified atrial fibrillation; I10 Essential (primary) hypertension; Z79.01 Long term (current) use of anticoagulants; Z79.899 Other long term (current) drug therapy
CPT/HCPCS: 36415; 86900; 86901; 80053; 82150; 83605; 83690; 85025; 85610; 85730; 86850; 82272; 74177; 99285; 96365; 96375 ×2; J2543; J2270; C9113; Q9967; 96366